=== PATIENT | male | born 1950 | race African-American/Black ===

== ENCOUNTER 2016-09-20 03:36 | Emergency (ER) | payer OTHER ==
[~2016-09-20] VITALS: Ht 177.8 cm; Wt 96.0 kg
[~2016-09-20 03:36] MED LIST: ASPI325T PO; METF-324 PO; METO50TA PO; PRAV40TA PO
[2016-09-20 03:38] VITALS: BP 143/78; PULSE 70; RESP 18; TEMP 98; O2SAT 99
[2016-09-20] MEDS ORDERED: SODIUM CHLORIDE 0.9% FLUSH 10 ML FLUSH IVF PRN (04:15)
[2016-09-20] MEDS ORDERED: LISI10TA3 PO (04:17)
[2016-09-20] MEDS ORDERED: ASPI325T PO (04:17)
[2016-09-20] MEDS ORDERED: PRAV40TA PO (04:17)
[2016-09-20] MEDS ORDERED: APIX2.5T PO (04:17)
[2016-09-20] MEDS ORDERED: METF-382 PO (04:17)
--- NOTE | 2016-09-20 04:17 | PD ---
HPI Chief Complaint: General Weakness Time Seen by Provider: 04:13 Travel History International Travel<30 days: No Contact w/Intl Traveler<30days: No Traveled to known affect area: No History of Present Illness HPI 66-year-old male patient with history of hypertension, atrial fibrillation currently on Eliquis, presents to the ER today because he states that he had helped his neighbor him oh the lawn yesterday, and since then has been feeling generally weak, lightheaded. He denies any chest pains, trouble breathing, vomiting, fevers, or any other issues. He denies any focal numbness or weakness. Modifying Factors: None Associated Signs & Symptoms: General weakness, dizziness Risk Factors: Elderly PFSH Past Medical History Heart Rhythm Problems: Yes (SKIPPED BEATS) Cardiovascular Problems: Yes High Cholesterol: Yes Diabetes: Yes Hypertension: Yes Musculoskeletal: No Neurologic: No Social History Alcohol Use: No Tobacco Use: No Allergies-Medications (Allergen,Severity, Reaction): Coded Allergies: No Known Allergies (Verified , 09/20/16) Reported Meds & Prescriptions Reported Meds & Active Scripts Active Reported Lisinopril 10 Mg Tab 10 Mg PO DAILY Pravachol (Pravastatin) 40 Mg Tab 40 Mg PO DAILY Metformin ER (Metformin HCl) 1,000 Mg Calvin 1,000 Mg PO BID With evening meal Eliquis (Apixaban) 2.5 Mg Tab 2.5 Mg PO DAILY Aspirin 325 Mg Tab 325 Mg PO Review of Systems Except as stated in HPI: all other systems reviewed are Neg Physical Exam Narrative GENERAL: Well-developed elderly -[place]ish male patient currently in mild distress. Awake and oriented 3. SKIN: Focused skin assessment warm/dry. HEAD: Atraumatic. Normocephalic. EYES: Pupils equal and round. No scleral icterus. No injection or drainage. ENT: No nasal bleeding or discharge. Mucous membranes pink and moist. NECK: Trachea midline. No JVD. CARDIOVASCULAR: Regular rate and rhythm. No murmur appreciated. RESPIRATORY: No accessory muscle use. Clear to auscultation. Breath sounds equal bilaterally. GASTROINTESTINAL: Abdomen soft, non-tender, nondistended. Hepatic and splenic margins not palpable. MUSCULOSKELETAL: No obvious deformities. No clubbing. No cyanosis. No edema. NEUROLOGICAL: Awake and alert. No obvious cranial nerve deficits. Motor grossly within normal limits. Normal speech. PSYCHIATRIC: Appropriate mood and affect; insight and judgment normal. Data Data Last Documented VS Vital Signs Date Time Temp Pulse Resp B/P Pulse Ox O2 Delivery O2 Flow Rate FiO2 09/20/16 03:38 98.0 70 18 143/78 99 Orders Electrocardiogram (09/20/16 04:13) Complete Blood Count With Diff (09/20/16 04:13) Comprehensive Metabolic Panel (09/20/16 04:13) Magnesium (Mg) (09/20/16 04:13) Ckmb (Isoenzyme) Profile (09/20/16 04:13) Troponin I (09/20/16 04:13) Act Partial Throm Time (Ptt) (09/20/16 04:13) Prothrombin Time / Inr (Pt) (09/20/16 04:13) Urinalysis - C+S If Indicated (09/20/16 04:13) Chest, Single Ap (09/20/16 04:13) Ecg Monitoring (09/20/16 04:13) Iv Access Insert/Monitor (09/20/16 04:13) Oximetry (09/20/16 04:13) Sodium Chloride 0.9% Flush (Ns Flush) (09/20/16 04:15) CKMB (09/20/16 04:30) CKMB% (09/20/16 04:30) Ct Brain W/O Iv Contrast(Rout) (09/20/16 05:48) Labs Laboratory Tests Test 09/20/16 09/20/16 04:30 06:00 White Blood Count 5.0 TH/MM3 Red Blood Count 4.10 MIL/MM3 Hemoglobin 12.2 GM/DL Hematocrit 36.2 % Mean Corpuscular Volume 88.2 FL Mean Corpuscular Hemoglobin 29.9 PG Mean Corpuscular Hemoglobin 33.9 % Concent Red Cell Distribution Width 13.0 % Platelet Count 234 TH/MM3 Mean Platelet Volume 9.2 FL Neutrophils (%) (Auto) 47.5 % Lymphocytes (%) (Auto) 43.3 % Monocytes (%) (Auto) 6.1 % Eosinophils (%) (Auto) 2.1 % Basophils (%) (Auto) 1.0 % Neutrophils # (Auto) 2.4 TH/MM3 Lymphocytes # (Auto) 2.1 TH/MM3 Monocytes # (Auto) 0.3 TH/MM3 Eosinophils # (Auto) 0.1 TH/MM3 Basophils # (Auto) 0.1 TH/MM3 CBC Comment DIFF FINAL Differential Comment Prothrombin Time 10.1 SEC Prothromb Time International 0.9 RATIO Ratio Activated Partial 28.3 SEC Thromboplast Time Sodium Level 144 MEQ/L Potassium Level 4.6 MEQ/L Chloride Level 108 MEQ/L Carbon Dioxide Level 29.3 MEQ/L Anion Gap 7 MEQ/L Blood Urea Nitrogen 19 MG/DL Creatinine 1.23 MG/DL Estimat Glomerular Filtration 72 ML/MIN Rate Random Glucose 125 MG/DL Calcium Level 8.7 MG/DL Magnesium Level 1.9 MG/DL Total Bilirubin 0.3 MG/DL Aspartate Amino Transf 12 U/L (AST/SGOT) Alanine Aminotransferase 24 U/L (ALT/SGPT) Alkaline Phosphatase 69 U/L Total Creatine Kinase 218 U/L Creatine Kinase MB 1.9 NG/ML Troponin I LESS THAN 0.02 NG/ML Total Protein 7.2 GM/DL Albumin 3.9 GM/DL Urine Color YELLOW Urine Turbidity CLEAR Urine pH 5.0 Urine Specific [place] 1.021 Urine Protein NEG mg/dL Urine Glucose (UA) NEG mg/dL Urine Ketones NEG mg/dL Urine Occult Blood NEG Urine Nitrite NEG Urine Bilirubin NEG Urine Urobilinogen LESS THAN 2.0 MG/DL Urine Leukocyte Esterase NEG Urine RBC LESS THAN 1 /hpf Urine WBC LESS THAN 1 /hpf Urine Squamous Epithelial <1 /hpf Cells Urine Hyaline Casts 1 /lpf Urine Mucus FEW /lpf Microscopic Urinalysis Comment CULT NOT INDICATED MDM Medical Decision Making Medical Screen Exam Complete: Yes Emergency Medical Condition: Yes Medical Record Reviewed: Yes Interpretation(s) EKG shows normal sinus rhythm with T wave flattening and depressions in 3 and aVF. No signs of acute ST-T elevations. Laboratory Tests Test 09/20/16 09/20/16 04:30 06:00 Red Blood Count 4.10 MIL/MM3 (4.50-5.90) Hemoglobin 12.2 GM/DL (13.0-17.0) Hematocrit 36.2 % (39.0-51.0) Chloride Level 108 MEQ/L (98-107) Blood Urea Nitrogen 19 MG/DL (7-18) Estimat Glomerular Filtration 72 ML/MIN (>89) Rate Random Glucose 125 MG/DL (74-106) Aspartate Amino Transf 12 U/L (15-37) (AST/SGOT) Troponin I LESS THAN 0.02 NG/ML (0.02-0.05) Urine Mucus FEW /lpf (OCC) Differential Diagnosis General weakness, dizzinessdehydration versus dysrhythmias versus metabolic issues Narrative Course Patient has no focal neurological deficits. Vital signs are stable in the ER. EKG did not show significant dysrhythmias. Lab work did not show significant metabolic issues. There are no signs of sepsis. UA shows no UTI. CT was ordered for further evaluation of weakness. Physician Communication Physician Communication Case is signed out to Dr. Mckeon at 7 AM pending CAT scan. Disposition based on CAT scan. Diagnosis Primary Impression: General weakness Condition: Stable Timmy Ferreira MD Sep 20, 2016 04:17
[2016-09-20 04:49] LABS: AUTOMATED NEUTROPHIL # 2.4 TH/MM3 (1.8-7.7); BASOPHIL # 0.1 TH/MM3 (0-0.2); EOSINOPHIL # 0.1 TH/MM3 (0-0.4); EOSINOPHIL % 2.1 % (0.0-4.0); HEMATOCRIT 36.2 % (39.0-51.0); HEMO FLAGS DIFF FINAL; LYMPH % 43.3 % (9.0-44.0); LYMPHOCYTE # 2.1 TH/MM3 (1.0-4.8); MEAN CELL VOLUME 88.2 FL (80.0-100.0); MEAN CORPUSCULAR HEMOGLOBIN 29.9 PG (27.0-34.0); MEAN CORPUSCULAR HGB CONC 33.9 % (32.0-36.0); MONO % 6.1 % (0.0-8.0); NEUT % 47.5 % (16.0-70.0); PLATELET COUNT 234 TH/MM3 (150-450)
--- NOTE | 2016-09-20 04:52 | RADRPT ---
EXAM DATE/TIME: 09/20/2016 04:26 [facility] COMPARISON: No previous studies available for comparison. INDICATIONS : Palpitations. MEDICAL HISTORY : None. SURGICAL HISTORY : None. ENCOUNTER: Initial ACUITY: 1 day PAIN SCORE: 0/10 LOCATION: Bilateral chest FINDINGS: A single view of the chest demonstrates the lungs to be symmetrically aerated without evidence of mas s, infiltrate or effusion. The cardiomediastinal contours are unremarkable. Osseous structures are intact. CONCLUSION: No evidence of acute cardiopulmonary disease. Tad Larios MD on September 20, 2016 at 4:51 Board Certified Radiologist. This report was verified electronically.
[2016-09-20 04:53] LABS: APTT (PATIENT) 28.3 SEC (24.3-30.1); INTERNATIONAL NORMALIZED RATIO 0.9 RATIO; PROTHROMBIN TIME - PATIENT 10.1 SEC (9.8-11.6)
[2016-09-20 05:06] LABS: ALT (GPT) 24 U/L (12-78); ANION GAP 7 MEQ/L (5-15); AST (GOT) 12 U/L (15-37); BICARBONATE 29.3 MEQ/L (21.0-32.0); BLOOD UREA NITROGEN 19 MG/DL (7-18); CHLORIDE 108 MEQ/L (98-107); GLOMERULAR FILTRATION RATE 72 ML/MIN (>89); MAGNESIUM 1.9 MG/DL (1.5-2.5); POTASSIUM 4.6 MEQ/L (3.5-5.1); SODIUM (NA) 144 MEQ/L (136-145)
[2016-09-20 05:09] LABS: ALKALINE PHOSPHATASE 69 U/L (45-117); CREATINE KINASE 218 U/L (39-308); TOTAL BILIRUBIN ADULT 0.3 MG/DL (0.2-1.0)
[2016-09-20 05:22] LABS: CKMB 1.9 NG/ML (0.5-3.6)
[2016-09-20 06:13] LABS: BLOOD, URINE NEG (NEG); COMMENT (UR) CULT NOT INDICATED; CULTURE IF INDICATED CULT NOT INDICATED; GLUCOSE,URINE NEG (NEG); HYALINE CAST, URINE 1 /lpf (RARE); KETONE, URINE NEG (NEG); MUCUS URINE FEW /lpf (OCC); NITRITE,URINE NEG (NEG); SQUAMOUS EPITHELIAL CELL URINE <1 /hpf (0-5); URINE COLOR YELLOW (YELLW/STRAW)
--- NOTE | 2016-09-20 06:59 | RADRPT ---
EXAM DATE/TIME: 09/20/2016 06:36 [facility] COMPARISON: No previous studies available for comparison. INDICATIONS : Dizziness and general weakness. RADIATION DOSE: 47.05 CTDIvol (mGy) MEDICAL HISTORY : Hypertension. A-Fib. Diabetes. SURGICAL HISTORY : None. ENCOUNTER: Initial ACUITY: 1 day PAIN SCALE: 0/10 LOCATION: cranial TECHNIQUE: Multiple contiguous axial images were obtained of the head. Using automated exposure control and adj ustment of the mA and/or kV according to patient size, radiation dose was kept as low as reasonably a chievable to obtain optimal diagnostic quality images. FINDINGS: CEREBRUM: The ventricles are normal for age. No evidence of midline shift, mass lesion, hemorrhage or acute in farction. No extra-axial fluid collections are seen. POSTERIOR FOSSA: The cerebellum and brainstem are intact. The 4th ventricle is midline. The cerebellopontine angle i s unremarkable. EXTRACRANIAL: The visualized portion of the orbits is intact. SKULL: The calvaria is intact. No evidence of skull fracture. CONCLUSION: Negative noncontrast head CT. Tad Lariso MD on September 20, 2016 at 6:58 Board Certified Radiologist. This report was verified electronically.
[2016-09-20 07:12] VITALS: BP 130/72; RESP 17; TEMP 97.7; O2SAT 99
--- NOTE | 2016-09-20 09:58 | EKG ---
Date Performed: 09/20/2016 Time Performed: 04:33:51 PTAGE: 66 years EKG: Sinus rhythm POSSIBLE INFERIOR MYOCARDIAL INFARCTION ABNORMAL ECG NO PREVIOUS TRACING DOCTOR: Kamaljit Cuevas Interpretating Date/Time 09/20/2016 09:56:48
== END 2016-09-20 07:12 | disposition home or self-care (01) ==
LOC: NEPC 03:36
DX: R53.1 Weakness (principal); E78.00 Pure hypercholesterolemia, unspecified; E11.9 Type 2 diabetes mellitus without complications; I10 Essential (primary) hypertension; I48.91 Unspecified atrial fibrillation; R42 Dizziness and giddiness; Z79.899 Other long term (current) drug therapy; Z79.82 Long term (current) use of aspirin
CPT/HCPCS: 70450; 71010; 80053; 81001; 82550; 82552; 83735; 84484; 85025; 85610; 85730; 93005; 99285